=== PATIENT | female | born 1990 | race Caucasian/White ===

== ENCOUNTER 2016-10-09 06:30 | Inpatient (IN) | payer BC ==
[~2016-10-09] VITALS: Ht 172.7 cm; Wt 64.0 kg
[2016-10-09] VITALS (8 sets, daily range): BP systolic 106–145; RESP 20; Ht 172.7 cm; Wt 64.0 kg
[2016-10-09] MEDS ORDERED: VANCOMYCIN 1,000 MG in SODIUM CHLORIDE 0.9% 250 ML IV SCH (07:00)
[2016-10-09] MEDS ORDERED: PROMETHAZINE 25 MG/ML VIAL IV PRN (07:00)
[2016-10-09] MEDS ORDERED: ONDANSETRON 4 MG VIAL IV PRN (07:00)
[2016-10-09] MEDS ORDERED: LIDOCAINE 1% 30 ML PF INFILTRATE ONE (07:00)
[2016-10-09] MEDS ORDERED: FAMOTIDINE 20 MG INJ IV PRN (07:00)
[2016-10-09] MEDS ORDERED: FAMOTIDINE 20 MG TAB PO PRN (07:00)
[2016-10-09] MEDS ORDERED: ACETAMINOPHEN 325 MG TAB PO PRN (07:00)
[2016-10-09] MEDS ORDERED: LIDOCAINE 1% BUFFERED 1 ML SYR INTRADERM PRN (07:00)
[2016-10-09] MEDS ORDERED: CLINDAMYCIN 900 MG in DEXTROSE 5% 50 ML IV PRN (07:00)
[2016-10-09] MEDS ORDERED: MORPHINE 5 MG/1 ML VIAL IV PRN (07:00)
[2016-10-09] MEDS ORDERED: ALU/MAG/SIM 30 ML UDC PO PRN (07:00)
[2016-10-09] MEDS ORDERED: PHARMACY TO DOSE GENTAMICIN IV PRN (07:00)
[2016-10-09] MEDS ORDERED: METOCLOPRAMIDE 10 MG/2 ML VIAL IV PUSH PRN (07:00)
[2016-10-09] MEDS ORDERED: OXYTOCIN 15 UNITS/250 ML NS 250 ML IV SCH (07:00)
[2016-10-09] MEDS ORDERED: TERBUTALINE 1 MG/ML VIAL SUBQ PRN (07:00)
[2016-10-09] MEDS ORDERED: OXYTOCIN 15 UNITS/250 ML NS 15 UNITS in PART FILL PIGGYBACK 1 EA IV SCH (07:00)
[2016-10-09] MEDS ORDERED: CEFAZOLIN (LD/OB) 100 ML IV PRN (07:45)
[2016-10-09] MEDS ORDERED: CEFAZOLIN 2,000 MG in SODIUM CHLORIDE 0.9% 100 ML IV ONE (07:45)
[2016-10-09] MEDS ORDERED: FENTANYL 100 MCG/2 ML AMP ONE (07:49)
[2016-10-09] MEDS ORDERED: ROPIV/FENT 0.2%-2MCG/ML 100 ML EPIDURAL ONE (07:49)
[2016-10-09] MEDS: LACT RINGERS 1,000 ML IV SCH ×2 (08:06→10:43)
[2016-10-09] MEDS ORDERED: FENTANYL 100 MCG/2 ML AMP EPIDURAL ONE (08:30)
[2016-10-09] MEDS ORDERED: SODIUM CHLORIDE 0.9% 500 ML IV PRN (08:30)
[2016-10-09] MEDS ORDERED: LACT RINGERS 500 ML IV PRN (08:30)
[2016-10-09] MEDS ORDERED: LACT RINGERS 500 ML IV ONE (08:30)
[2016-10-09] MEDS: ROPIV/FENT 0.2%-2MCG/ML 100 ML EPIDURAL SCH ×2 (09:04→17:53)
[2016-10-09] MEDS ORDERED: CEFAZOLIN 1,000 MG in DEXTROSE 5% 50 ML IV SCH (15:45)
[2016-10-09] MEDS ORDERED: LIDOCAINE 1% 30 ML PF ONE (18:07)
[2016-10-09] MEDS ORDERED: ASTRINGENT MED PADS 40'S TOPICAL PRN (19:40)
[2016-10-09] MEDS ORDERED: TDaP 0.5 ML VIAL IM.VACC ONE (19:40)
[2016-10-09] MEDS: MISOPROSTOL 200 MCG TAB PO SCH (19:40)
[2016-10-09] MEDS ORDERED: MAG HYDROX 30 ML UDC PO PRN (19:40)
[2016-10-09] MEDS ORDERED: DERMOPLAST SPRAY TOPICAL PRN (19:40)
[2016-10-09] MEDS ORDERED: OXYTOCIN 15 UNITS/250 ML NS 250 ML IV ONE (19:40)
[2016-10-09] MEDS ORDERED: ZOLPIDEM 5 MG TAB PO PRN (19:40)
[2016-10-09] MEDS ORDERED: MEASLES,MUMPS,RUBELLA VAC SUBQ.VACC ONE (19:40)
[2016-10-09] MEDS ORDERED: **ONLY ANESTEHSIA MAY ORDER OPIATES WHILE ON EPIDURAL XX SCH (20:00)
[2016-10-10] MEDS: Ibuprofen 600 MG TAB PO SCH ×5 (00:28→23:19)
[2016-10-10] MEDS: MISOPROSTOL 200 MCG TAB PO SCH (00:28)
[2016-10-10 03:00] VITALS: BP_SYST 133; RESP 20; TEMP 97.9
[2016-10-10] MEDS ORDERED: MISOPROSTOL 100 MCG TAB ONE (04:58)
[2016-10-10 05:15] VITALS: BP_SYST 100; RESP 14; TEMP 98
[2016-10-10 08:32] VITALS: BP_SYST 130; RESP 18; TEMP 97.7
[2016-10-10] MEDS ORDERED: DOCUSATE SOD 100 MG CAP PO SCH (09:00)
[2016-10-10 13:34] VITALS: BP_SYST 114; TEMP 97.7
[2016-10-10 13:35] VITALS: RESP 18
[2016-10-10 17:44] VITALS: BP_SYST 107; RESP 18; TEMP 98.3
[2016-10-11 05:39] VITALS: BP_SYST 114; RESP 16; TEMP 97.7
[2016-10-11] MEDS: Ibuprofen 600 MG TAB PO SCH (05:45)
[2016-10-11 09:37] VITALS: BP_SYST 127; RESP 24; TEMP 97.6
[2016-10-11 09:47] VITALS: BP_SYST 114; RESP 16; TEMP 97.7
== END 2016-10-11 11:31 | disposition home or self-care (01) | DRG 775 ==
LOC: LD 06:33 → OB 22:42
PROVIDERS: ADMIT Obstetrics & Gynecology Reproductive Endocrinology; ATTEND Obstetrics & Gynecology Reproductive Endocrinology
PROC: 10E0XZZ Delivery of Products of Conception, External Approach (ICD-10-PCS; principal; 2016-10-09)
PROC: 3E033VJ Introduction of Other Hormone into Peripheral Vein, Percutaneous Approach (ICD-10-PCS; 2016-10-09)
PROC: 10907ZC Drainage of Amniotic Fluid, Therapeutic from Products of Conception, Via Natural or Artificial Opening (ICD-10-PCS; 2016-10-09)
DX: O48.0 Post-term pregnancy (principal); O70.0 First degree perineal laceration during delivery; Z3A.41 41 weeks gestation of pregnancy; Z37.0 Single live birth
CPT/HCPCS: 85025